=== PATIENT | female | born 1995 | race African-American/Black ===

== ENCOUNTER 2024-06-29 14:43 | Emergency (ER) | payer OTHER, SELFPAY ==
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
[2024-06-29 14:49] VITALS: BP 133/63; PULSE 79; RESP 18; TEMP 36.6; O2SAT 99
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
[2024-06-29 16:35] LABS: BEDSIDEPREGUCG Negative
[2024-06-29] MEDS: LIDOCAINE 5% PATCH 2 PATCH TRANSDERM (16:38)
[2024-06-29] MEDS: ACETAMINOPHEN 500 MG TABLET 1000 MG PO (16:38)
[2024-06-29] MEDS: CYCLOBENZAPRINE HCL 10 MG TABLET PO (16:39)
[2024-06-29 16:43] LABS: Add Urine Microscopic? YES; Appearance Urine Cloudy (Clear); Bacteria Urine 1+ /hpf; Bilirubin Urine Negative (Negative); Blood Urine Negative (Negative); Color Urine Yellow (Yellow); Glucose Urine UA Negative (Negative); Ketones Urine Negative (Negative); Leukocyte Esterase Ur Negative LEU/UL (Negative); Nitrate Urine Negative (Negative); Non Pathogenic Casts 0-2; Protein Urine Negative (Negative); RBC Urine 0-2 /hpf (0-2); Specific Grav Ur 1.027 (1.001-1.035); Squamous Epithelial Cell Urine Moderate /hpf (Few); Urobilinogen Urine 0.2 mg/dL (<2.0); WBC Urine 0-5 /hpf (0-3)
[2024-06-29 18:29] VITALS: BP 132/72; PULSE 83; RESP 16; TEMP 36.8; O2SAT 100
== END 2024-06-29 18:30 | disposition home or self-care (01) ==
PROVIDERS: Emergency Provider Nurse Practitioner Family
DX: S16.1XXA Strain of muscle, fascia and tendon at neck level, initial encounter (principal); S39.012A Strain of muscle, fascia and tendon of lower back, initial encounter; V43.52XA Car driver injured in collision with other type car in traffic accident, initial encounter
CPT/HCPCS: 72040; 72072; 72100; 81001; 81025; 99284; A9270